=== PATIENT | female | born 1990 | race Two or more races ===

== ENCOUNTER 2024-12-08 00:21 | Outpatient (CLI) | payer OTHER ==
[2024-12-07 23:27] VITALS: BP 103/70
[2024-12-08] MEDS ORDERED: PRENATABS RX T1 EACH PO (00:28)
[2024-12-08] MEDS ORDERED: FOLIC ACID0.4 MG PO (00:29)
[2024-12-08] MEDS ORDERED: RINGERS SOLUTION,LACTATED 1,000 ML IV ONE (00:30)
[2024-12-08] MEDS ORDERED: PROMETHAZINE HCL 25 MG/ML AMPUL IV PRN (00:30)
[2024-12-08 01:04] LABS: HEMATOCRIT 36.2 % (36.0-45.00); HEMOGLOBIN 12.4 g/dL (12.0-15.00); MEAN CELL VOLUME 81.4 fL (80.00-100.00); MEAN CORPUSCULAR HEMOGLOBIN 27.8 pg (27.00-32.0); MEAN CORPUSCULAR HGB CONC 34.2 g/dl (32.0-36.0); PLATELET COUNT 273 K/uL (150-450); RED BLOOD COUNT 4.46 M/uL (4.00-6.00); RED CELL DISTRIBUTION WIDTH 14.3 % (11.5-14.5)
[2024-12-08 02:07] LABS: ALBUMIN 2.7 gm/dL (3.4-5.0); BILIRUBIN TOTAL 0.3 mg/dL (0.3-1.2); CALCIUM 8.3 mg/dL (8.5-10.1); CREATININE SERUM 0.46 mg/dL (0.55-1.02); GFR 158.44; GLOBULINA 3.5 G/DL (2.4-3.5); POTASSIUM 3.97 mEq/L (3.5-5.1); TOTAL PROTEIN 6.2 gm/dL (6.4-8.2)
[2024-12-08 03:38] VITALS: BP 95/61
[2024-12-08 06:41] VITALS: BP 99/61; O2SAT 96
[2024-12-08 11:00] VITALS: BP 100/63
== END 2024-12-08 11:11 | disposition home or self-care (01) ==
LOC: OBS/DEL 00:21
PROVIDERS: Obstetrics & Gynecology Gynecology; ATTEND Obstetrics & Gynecology Maternal & Fetal Medicine
DX: O21.2 Late vomiting of pregnancy (principal); Z3A.20 20 weeks gestation of pregnancy

== ENCOUNTER 2024-12-10 13:14 | Emergency (ER) | payer OTHER ==
[~2024-12-10] VITALS: Ht 157.5 cm; Wt 53.1 kg
[~2024-12-10 13:14] MED LIST: FOLIC ACID0.4 MG PO; PRENATABS RX T1 EACH PO
[2024-12-10] MEDS ORDERED: RINGERS SOLUTION,LACTATED 1,000 ML IV ONE (15:45)
[2024-12-10] MEDS ORDERED: ONDANSETRON HCL 2 MG/ML VIAL IV ONE (15:45)
[2024-12-10] MEDS ORDERED: ONDANSETRON HCL 2 MG/ML VIAL ONE (16:06)
[2024-12-10 16:31] LABS: HEMATOCRIT 38.5 % (36.0-45.00); HEMOGLOBIN 13.1 g/dL (12.0-15.00); MEAN CELL VOLUME 81.9 fL (80.00-100.00); MEAN CORPUSCULAR HGB CONC 34.2 g/dl (32.0-36.0); PLATELET COUNT 277 K/uL (150-450); RED CELL DISTRIBUTION WIDTH 14.1 % (11.5-14.5)
[2024-12-10 17:23] LABS: ALBUMIN 2.8 gm/dL (3.4-5.0); BILIRUBIN TOTAL 0.26 mg/dL (0.3-1.2); CALCIUM 9.2 mg/dL (8.5-10.1); CREATININE SERUM 0.5 mg/dL (0.55-1.02); GFR 143.9; GLOBULINA 4.4 G/DL (2.4-3.5); POTASSIUM 3.94 mEq/L (3.5-5.1); TOTAL PROTEIN 7.2 gm/dL (6.4-8.2)
[2024-12-10] MEDS ORDERED: OSEL75CA PO (19:19)
[2024-12-10] MEDS ORDERED: PEPCID AC20 MG PO (19:19)
== END 2024-12-10 21:43 | disposition home or self-care (01) ==
LOC: ER 13:16
PROVIDERS: General Practice
DX: O99.612 Diseases of the digestive system complicating pregnancy, second trimester (principal); K92.89 Other specified diseases of the digestive system; R19.7 Diarrhea, unspecified; Z3A.21 21 weeks gestation of pregnancy

== ENCOUNTER 2025-03-14 17:00 | Inpatient (IN) | payer OTHER ==
[~2025-03-14] VITALS: Ht 157.5 cm; Wt 104.8 kg
[2025-03-14 16:40] VITALS: BP 131/78
[~2025-03-14 17:00] MED LIST changes: +OSEL75CA PO; +PEPCID AC20 MG PO
[2025-03-14] MEDS ORDERED: BETAMETHASONE ACETATE,SOD PHOS 30 MG/5 ML ML ONE (17:05)
[2025-03-14] MEDS ORDERED: MAGNESIUM SULFATE IN WATER 0.04 GM/ML IV.SOLN IV ONE (17:06)
[2025-03-14] MEDS ORDERED: AMPICILLIN SODIUM 2,000 MG VIAL ONE (17:06)
[2025-03-14] MEDS ORDERED: BETAMETHASONE ACETATE,SOD PHOS 30 MG/5 ML ML IM NR (17:20)
[2025-03-14] MEDS ORDERED: PRENATAL TABLE1 EAC1 PO (17:24)
[2025-03-14] MEDS ORDERED: FOLIC ACID20 MG PO (17:25)
[2025-03-14] MEDS ORDERED: PROBIOTIC1 EAC4 PO (17:25)
[2025-03-14] MEDS ORDERED: MAGNESIUM SULFATE IN WATER 500 ML IV SCH (17:30)
[2025-03-14] MEDS ORDERED: AMPICILLIN SODIUM 2,000 MG VIAL IV ONE (17:30)
[2025-03-14] MEDS ORDERED: RINGERS SOLUTION,LACTATED 1,000 ML IV SCH (17:30)
[2025-03-14 17:47] LABS: URINE APPEARANCE Clear; URINE BILIRRUBIN Negative (NEGATIVE); URINE BLOOD Moderate; URINE COLOR Yellow; URINE GLUCOSE Negative (NEGATIVE); URINE KETONE Negative (NEGATIVE); URINE LEUKOCYTE Negative; URINE NITRATE Negative; URINE PROTEIN Negative (NEGATIVE); URINE UROBILINOGEN 0.2 E.U./dl
[2025-03-14 17:50] LABS: URINE BACTERIA 96.6 uL (0.0-1933); URINE EPITHELIAL CELLS 10.4 uL (0.0-38.8); URINE RBC 41.2 uL (0.0-20.8); URINE WBC 4.5 uL (0.0-23.2)
[2025-03-14 17:51] LABS: HEMATOCRIT 37.3 % (36.0-45.00); HEMOGLOBIN 12.4 g/dL (12.0-15.00); MEAN CELL VOLUME 83.1 fL (80.00-100.00); MEAN CORPUSCULAR HEMOGLOBIN 27.7 pg (27.00-32.0); MEAN CORPUSCULAR HGB CONC 33.4 g/dl (32.0-36.0); PLATELET COUNT 280 K/uL (150-450); RED BLOOD COUNT 4.48 M/uL (4.00-6.00); RED CELL DISTRIBUTION WIDTH 14.8 % (11.5-14.5)
[2025-03-14 18:11] LABS: INR 0.94; PARTIAL THROMBOPLASTIN TIME 27.2 SECONDS (22.0-34.0); PROTHROMBIN TIME 10.3 SECONDS (9.0-11.5)
[2025-03-14 18:18] LABS: ALBUMIN 2.7 gm/dL (3.4-5.0); BILIRUBIN TOTAL 0.15 mg/dL (0.3-1.2); CALCIUM 9.2 mg/dL (8.5-10.1); CREATININE SERUM 0.58 mg/dL (0.55-1.02); GFR 120.47; GLOBULINA 3.5 G/DL (2.4-3.5); POTASSIUM 4.15 mEq/L (3.5-5.1); TOTAL PROTEIN 6.2 gm/dL (6.4-8.2)
[2025-03-14 19:20] VITALS: BP 127/89
[2025-03-14] MEDS ORDERED: ACETAMINOPHEN 500 MG GEL..CAP PO PRN (19:45)
[2025-03-14] MEDS ORDERED: FAMOTIDINE/PF 20 MG/2 ML VIAL IV PUSH SCH (21:00)
[2025-03-14] MEDS ORDERED: AMPICILLIN SODIUM 1,000 MG VIAL IV SCH (21:00)
[2025-03-14 23:24] VITALS: BP 132/80
[2025-03-15] MEDS ORDERED: CITRIC ACID/SODIUM CITRATE 30 ML BLIST.PACK PO ONE ×2 (02:51→03:15)
[2025-03-15 03:20] VITALS: BP 119/76
[2025-03-15] MEDS ORDERED: MAGNESIUM SULFATE IN WATER 0.04 GM/ML IV.SOLN IV ONE (03:59)
[2025-03-15 06:16] VITALS: BP 104/67; O2SAT 97
[2025-03-15] MEDS ORDERED: FAMOtidine 20 MG TABLET PO SCH (09:00)
[2025-03-15 11:34] VITALS: BP 118/73
[2025-03-15] MEDS ORDERED: CEFOXITIN SODIUM 2,000 MG VIAL IV ONE (13:52)
[2025-03-15] MEDS ORDERED: OXYTOCIN 10 UNITS/ML VIAL ONE ×2 (13:53→16:49)
[2025-03-15] MEDS ORDERED: ERYTHROMYCIN BASE OPHT 1GM EACH TUBE OP ONE (13:53)
[2025-03-15] MEDS ORDERED: CITRIC ACID/SODIUM CITRATE 30 ML BLIST.PACK PO STA (15:05)
[2025-03-15] MEDS ORDERED: CEFOXITIN SODIUM 2,000 MG VIAL IV STA (15:05)
[2025-03-15] MEDS ORDERED: KETOROLAC TROMETHAMINE 30 MG VIAL IM ONE (15:30)
[2025-03-15] MEDS ORDERED: MORPHINE SULFATE 4 MG/ML CARTRIDGE IV PRN (15:30)
[2025-03-15] MEDS ORDERED: OXYTOCIN 1,000 ML IV SCH (15:30)
[2025-03-15] MEDS ORDERED: RINGERS SOLUTION,LACTATED 1,000 ML IV SCH (15:30)
[2025-03-15] MEDS ORDERED: KETOROLAC TROMETHAMINE 30 MG VIAL ONE (16:14)
[2025-03-15] MEDS ORDERED: MORPHINE SULFATE 4 MG/ML VIAL IV ONE (16:55)
[2025-03-15] MEDS ORDERED: SIMETHICONE 125 MG CAPSULE PO SCH (17:00)
[2025-03-15] MEDS ORDERED: BETAMETHASONE ACETATE,SOD PHOS 30 MG/5 ML ML IM NR (17:20)
[2025-03-15 17:57] VITALS: BP 127/80
[2025-03-15 18:29] LABS: HEMATOCRIT 37.3 % (36.0-45.00); HEMOGLOBIN 12.4 g/dL (12.0-15.00); MEAN CELL VOLUME 81.6 fL (80.00-100.00); MEAN CORPUSCULAR HEMOGLOBIN 27.2 pg (27.00-32.0); MEAN CORPUSCULAR HGB CONC 33.4 g/dl (32.0-36.0); PLATELET COUNT 303 K/uL (150-450); RED BLOOD COUNT 4.57 M/uL (4.00-6.00); RED CELL DISTRIBUTION WIDTH 15.4 % (11.5-14.5)
[2025-03-15] MEDS ORDERED: KETOROLAC TROMETHAMINE 10 MG TABLET PO SCH (20:00)
[2025-03-15] MEDS ORDERED: CEFAZOLIN SODIUM 1,000 MG VIAL IV SCH (21:00)
[2025-03-16 01:00] VITALS: BP 111/70
[2025-03-16 07:24] LABS: HEMATOCRIT 35.2 % (36.0-45.00); MEAN CELL VOLUME 81.9 fL (80.00-100.00); MEAN CORPUSCULAR HEMOGLOBIN 27.9 pg (27.00-32.0); MEAN CORPUSCULAR HGB CONC 34.1 g/dl (32.0-36.0); PLATELET COUNT 264 K/uL (150-450); RED CELL DISTRIBUTION WIDTH 15.4 % (11.5-14.5)
[2025-03-16 08:00] VITALS: BP 112/70
[2025-03-16 18:05] VITALS: BP 139/83
[2025-03-16 20:00] VITALS: BP 117/82
[2025-03-17] VITALS: BP 130/80
[2025-03-17 04:30] VITALS: BP 100/66
[2025-03-17] MEDS ORDERED: OxyCODONE HCL 5 MG TABLET (ROXICODONE) PO PRN (06:00)
[2025-03-17 08:00] VITALS: BP 116/77
[2025-03-17] MEDS ORDERED: IBUprofen 400 MG TABLET PO SCH (09:00)
[2025-03-17 16:22] VITALS: BP 130/86
[2025-03-18 02:00] VITALS: BP 114/77
[2025-03-18 08:00] VITALS: BP 133/90
== END 2025-03-18 17:56 | disposition home or self-care (01) | DRG 786 ==
LOC: OB/GYN 17:00 → LDR 17:00 → O/R 03-15 14:25 → OB/GYN 03-15 14:38
PROVIDERS: Obstetrics & Gynecology Maternal & Fetal Medicine; ADMIT Obstetrics & Gynecology; ATTEND Obstetrics & Gynecology
PROC: 4A1HXCZ Monitoring of Products of Conception, Cardiac Rate, External Approach (ICD-10-PCS; 2025-03-14)
PROC: BY4FZZZ Ultrasonography of Third Trimester, Single Fetus (ICD-10-PCS; 2025-03-14)
PROC: BU4CZZZ Ultrasonography of Uterus and Ovaries (ICD-10-PCS; 2025-03-14)
PROC: 10D00Z1 Extraction of Products of Conception, Low, Open Approach (ICD-10-PCS; principal; 2025-03-15 14:00)
DX: O42.013 Preterm premature rupture of membranes, onset of labor within 24 hours of rupture, third trimester (principal); O60.14X0 Preterm labor third trimester with preterm delivery third trimester, not applicable or unspecified; O32.1XX0 Maternal care for breech presentation, not applicable or unspecified; Z3A.34 34 weeks gestation of pregnancy; Z37.0 Single live birth

== ENCOUNTER 2025-04-14 21:08 | Emergency (ER) | payer OTHER ==
[~2025-04-14] VITALS: Ht 157.5 cm; Wt 100.7 kg
[~2025-04-14 21:08] MED LIST changes: +FOLIC ACID20 MG PO; +PRENATAL TABLE1 EAC1 PO; +PROBIOTIC1 EAC4 PO
[2025-04-14] MEDS ORDERED: 0.9 % SODIUM CHLORIDE 1,000 ML IV ONE (22:30)
[2025-04-14] MEDS ORDERED: FAMOtidine 10 MG/ML (4ML VIAL) IV ONE (22:30)
[2025-04-14] MEDS ORDERED: PIPERACILLIN/TAZOBACTAM SODIUM 3.375 GM VIAL IV ONE (22:30)
[2025-04-14] MEDS ORDERED: KETOROLAC TROMETHAMINE 30 MG VIAL IV ONE (22:30)
[2025-04-14 23:21] LABS: BASO % 0.8 % (0.1-1.2); EOS % 5.3 % (0.7-7.0); HEMOGLOBIN 11.8 g/dL (11.2-15.7); LYMPH # 2.79 (1.18-3.74); MEAN CORPUSCULAR HEMOGLOBIN 26.8 pg (25.6-32.2); MONO # 0.58 (0.24-0.82); MONO % 7.7 % (4.7-12.5); NEUT # 3.67 (1.56-6.13); NEUT % 48.7 % (34.0-71.1); PLATELET COUNT 295 K/uL (163-369); RED CELL DISTRIBUTION WIDTH 14.3 % (11.6-14.4)
[2025-04-14 23:34] LABS: INR 1.03; PROTHROMBIN TIME 11.2 SECONDS (9.0-11.5)
[2025-04-15 00:04] LABS: PH,URINE 5.5 (5.0-8.0); URINE APPEARANCE Clear; URINE BILIRRUBIN Negative (NEGATIVE); URINE BLOOD Negative; URINE COLOR Yellow; URINE GLUCOSE Negative (NEGATIVE); URINE KETONE Negative (NEGATIVE); URINE LEUKOCYTE Negative; URINE NITRATE Negative; URINE PROTEIN Negative (NEGATIVE); URINE UROBILINOGEN 0.2 E.U./dl
[2025-04-15 00:09] LABS: URINE BACTERIA 799.1 uL (0.0-1933); URINE EPITHELIAL CELLS 37.7 uL (0.0-38.8); URINE RBC 4.8 uL (0.0-20.8); URINE WBC 17.3 uL (0.0-23.2)
[2025-04-15 01:02] LABS: ALBUMIN 3.4 gm/dL (3.4-5.0); BILIRUBIN TOTAL 0.18 mg/dL (0.3-1.2); CALCIUM 8.8 mg/dL (8.5-10.1); CREATININE SERUM 0.68 mg/dL (0.55-1.02); GFR 100.27; GLOBULINA 3.4 G/DL (2.4-3.5); POTASSIUM 4.52 mEq/L (3.5-5.1); TOTAL PROTEIN 6.8 gm/dL (6.4-8.2)
== END 2025-04-15 03:30 | disposition home or self-care (01) ==
LOC: ER 21:20
PROVIDERS: General Practice
DX: O86.00 Infection of obstetric surgical wound, unspecified (principal)